=== PATIENT | male | born 2005 | race Two or more races ===

== ENCOUNTER 2024-07-09 23:34 | Emergency (ER) | payer OTHER ==
[~2024-07-09] VITALS: Ht 170.2 cm; Wt 54.4 kg
[2024-07-09 23:48] VITALS: BP 120/66; TEMP 98
[2024-07-10] MEDS ORDERED: KETO10TA2 PO (00:22)
[2024-07-10] MEDS ORDERED: BACL5TAB PO (00:22)
[2024-07-10 01:15] VITALS: O2SAT 100
== END 2024-07-10 01:17 | disposition home or self-care (01) ==
LOC: ER 23:36
DX: S13.4XXA Sprain of ligaments of cervical spine, initial encounter (principal); M54.59 Other low back pain; V43.52XA Car driver injured in collision with other type car in traffic accident, initial encounter; Y93.89 Activity, other specified; Y92.488 Other paved roadways as the place of occurrence of the external cause; Y99.8 Other external cause status
CPT/HCPCS: 72125-TC; 72131-TC